=== PATIENT | female | born 1965 | race Caucasian/White ===

== ENCOUNTER 2016-11-13 10:44 | Emergency (ER) | payer OTHER ==
[2016-11-13 11:02] VITALS: BP 138/84
[2016-11-13] MEDS ORDERED: Ketorolac 30 MG/ML SDV IM ONE (11:53)
[2016-11-13] MEDS ORDERED: Ondansetron 4 MG Tab.DIS PO ONE (11:53)
--- NOTE | 2016-11-13 11:59 | EDM.PDOC ---
ED HPI GENERAL MEDICAL PROBLEM - General Chief Complaint: Headache Stated Complaint: HEADACHE Time Seen by Provider: 11/13/16 11:35 Source of Information: Reports: Patient History Limitations: Reports: No Limitations - History of Present Illness INITIAL COMMENTS - FREE TEXT/NARRATIVE: Patient is a 51-year-old female who presents to the ED complaining of the bitemporal headache that started approximately 3:00 last night. States pain is worse on the left in comparison to the right. She has had some mild dizziness present. Minimal nausea with no emesis. She took ibuprofen earlier this morning at approximately 5:0, symptoms have decreased. She states this past Sunday had a severe headache described as a migraine that resolved on its own. She was not able to keep any liquids or food down secondary discomfort. She layed in bed for 24 hours. She has history a migraines as a teenager. She has not had any migraines for quite some time up until recently. She describes the headache as a throbbing sensation mid forehead bitemporal. There is no vision changes present. No photophobia or hyperacusis noted. She has been dizzy described as being mild with standing. There is no difficulty swallowing, slurred speech, weakness to her upper or lower extremities or difficulty walking. She did contact her primary care provider last night and was instructed to come to the ED for imaging. Patient does have a family history of strokes. 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 Past medical history of asthma and seasonal allergies. She's takes ibuprofen only. Denies any smoking, recreational drug use. She utilizes alcohol on occasion basis. She flew in from [place] yesterday and is leaving today at approximate 1440. Headache Pain Score (Numeric/FACES): 6 - Related Data Allergies Allergy/AdvReac Type Severity Reaction Status Date / Time No Known Allergies Allergy Verified 11/13/16 10:54 Home Meds: Home Meds Albuterol/Ipratropium [Take Home: Albuterol/Ipratropium 4 GM Inhaler] 1 dose INH ASDIRECTED 11/13/16 [History] Past Medical History SPACE [employer]ER History: Reports: Ectopic Neurological History: Reports: Migraines - Past Surgical History Musculoskeletal Surgical History: Reports: Other (See Below) Other Musculoskeletal Surgeries/Procedures:: bilateral knee surgery, reconstruction of the right thumb Social & Family History - Tobacco Use Smoking Status *Q: Never Smoker Second Hand Smoke Exposure: No - Caffeine Use Caffeine Use: Reports: Coffee - Recreational Drug Use Recreational Drug Use: No ED ROS GENERAL - Review of Systems Review Of Systems: ROS reveals no pertinent complaints other than HPI. - Physical Exam Exam: See Below Exam Limited By: No Limitations General Appearance: Alert, WD/WN, No Apparent Distress Eye Exam: Bilateral Eye: EOMI, Normal Inspection, Nystagmus (None noted), PERRL Ears: Hearing Grossly Normal Nose: Normal Inspection Throat/Mouth: Normal Inspection, Normal Oropharynx, Normal Voice, No Airway Compromise Head Exam: Atraumatic, Normocephalic Neck: Normal Inspection, Supple, Non-Tender, Full Range of Motion. No: Lymphadenopathy (L), Lymphadenopathy (R) Respiratory/Chest: No Respiratory Distress, Lungs Clear, Normal Breath Sounds, Chest Non-Tender Cardiovascular: Normal Peripheral Pulses, Regular Rate, Rhythm, No Murmur GI/Abdominal: Normal Bowel Sounds, Soft, Non-Tender, No Organomegaly, No Distention Neuro Exam (Abbreviated): Alert, Oriented, CN II-XII Intact, Normal Cognition, Normal Gait, No Motor/Sensory Deficits, Other (Cerebellar function intact. No facial droop, slurred speech, difficulty swallowing, pronator drift, or weakness discrepancy's to the upper and lower extremity's.) Back Exam: Normal Inspection Extremities: Non-Tender, No Pedal Edema, Normal Capillary Refill Psychiatric: Normal Affect, Normal Mood Skin Exam: Warm, Dry, Intact, Normal Color, No Rash Course - Vital Signs Last Recorded V/S: Last Vital Signs Temp 98.0 F 11/13/16 10:56 Pulse 84 11/13/16 10:56 Resp 13 11/13/16 10:56 BP 138/84 11/13/16 10:56 Pulse Ox 100 11/13/16 10:56 - Orders/Labs/Meds Orders: Active Orders 24 hr Category Date Time Status EKG Documentation Completion [RC] STAT Care 11/13/16 11:52 Active Labs: Laboratory Tests 11/13/16 11/13/16 11/13/16 Range/Units 12:07 12:07 12:07 WBC 4.84 (3.98-10.04) K/mm3 RBC 4.82 (3.98-5.22) M/mm3 Hgb 15.4 (11.2-15.7) gm/L Hct 45.4 H (34.1-44.9) % MCV 94.2 (79.4-94.8) fl MCH 32.0 (25.6-32.2) pg MCHC 33.9 (32.2-35.5) g/dl RDW Std Deviation 42.5 (36.4-46.3) fL Plt Count 247 (182-369) K/mm3 MPV 9.8 (9.4-12.3) fl Neut % (Auto) 69.0 (34.0-71.1) % Lymph % (Auto) 18.4 L (19.3-51.7) % [place] % (Auto) 8.9 (4.7-12.5) % Eos % (Auto) 3.1 (0.7-5.8) Baso % (Auto) 0.6 (0.1-1.2) % Neut # (Auto) 3.34 (1.56-6.13) K/mm3 Lymph # (Auto) 0.89 L (1.18-3.74) K/mm3 [place] # (Auto) 0.43 H (0.24-0.36) K/mm3 Eos # (Auto) 0.15 (0.04-0.36) K/mm3 Baso # (Auto) 0.03 (0.01-0.08) K/mm3 PT 10.0 (8.0-13.0) SECONDS INR 0.92 APTT 24 (22-36) SECONDS Sodium 144 (136-145) mEq/L Potassium 4.1 (3.5-5.1) mEq/L Chloride 109 H (98-107) mEq/L Carbon Dioxide 29 (21-32) mEq/L Anion Gap 10.1 (5-15) BUN 13 (7-18) mg/dL Creatinine 0.8 (0.55-1.02) mg/dL Est Cr Clr Drug Dosing 73.63 mL/min Estimated GFR (MDRD) > 60 (>60) mL/min BUN/Creatinine Ratio 16.3 (14-18) Glucose 68 L (74-106) mg/dL Calcium 9.8 (8.5-10.1) mg/dL Total Bilirubin 0.5 (0.2-1.0) mg/dL AST 17 (15-37) U/L ALT 16 (14-59) U/L Alkaline Phosphatase 65 (46-116) U/L Troponin I < 0.017 (0.00-0.056) ng/mL C-Reactive Protein < 0.2 (<1.0) mg/dL Total Protein 7.4 (6.4-8.2) g/dl Albumin 3.7 (3.4-5.0) g/dl Globulin 3.7 gm/dL Albumin/Globulin Ratio 1.0 (1-2) TSH 3rd Generation 1.707 (0.358-3.74) uIU/mL Meds: Medications Discontinued Medications Generic Name Dose Route Start Last Admin Trade Name Freq PRN Reason Stop Dose Admin Ketorolac Tromethamine 30 mg 11/13/16 11:53 11/13/16 12:08 Toradol IM 11/13/16 11:54 30 mg ONETIME ONE Administration Ondansetron HCl 4 mg 11/13/16 11:53 11/13/16 12:05 Zofran Odt PO 11/13/16 11:54 4 mg ONETIME ONE Administration - Re-Assessments/Exams Free Text/Narrative Re-Assessment/Exam: Will obtain CT of the head without contrast. Initial labs and studies include CBC, chem 14, coag studies, troponin, TSH, and EKG. Ordered Toradol 30 mg IM and Zofran 4 mg by mouth. 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 She is restricted to take many medications to help abort headache. Labs reviewed: CBC, coag study, and chem 14 were essentially normal. Troponin, CRP, and TSH were within normal limits. CT the head impression: Equal to go but small meningioma overlying the left parietal convexity. As mentioned above, MRI would be needed to confirm or rule out if clinically needed. Sinus findings which are felt to be incidental. No acute intracranial abnormality is identified. Patient is supposed to be leaving [employer] at 2:40 PM today back to [place]. 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 Patient has been in contact with scheduling. It appears the patient will be remaining in [employer] for another day. She request to see if MRI could be obtained tomorrow morning. She has no headache at this point. 11/13/16 13:45 reassessment, headache is pain-free at this point. States with movement develops intermittent headache. Symptoms are mild. Earliest MRI appt is at 1:00 pm tomorrow. 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 This will not work. Patient to be discharged home. She will catch a flight home this coming morning at 0700hrs. She cannot take any sedative medications here in the E.D. Will discharge patient home with instructions as documented. Departure - Departure Time of Disposition: 14:25 Disposition: Home, Self-Care 01 Condition: Good Clinical Impression: Meningioma Headache Qualifiers: Headache type: unspecified Headache chronicity pattern: episodic headache Intractability: not intractable Qualified Code(s): R51 - Headache - Discharge Information Instructions: General Headache Without Cause Referrals: PCP,Not In Area [Primary Care Provider] - Forms: ED Department Discharge, ED Return to Work/School Form Additional Instructions: As discussed CT of the head did reveal a mengioma. MRI of the brain is required to further delineate extent. Take ibuprofen and tylenol in alternating fashion for headache. Push the fluids. Followup with PCP to have MRI ordered and discuss findings. Return to the E.D. if you develop any new or worsening symptoms. - My Orders Last 24 Hours: My Active Orders 11/13/16 11:52 EKG Documentation Completion [RC] STAT - Assessment/Plan Last 24 Hours: My Active Orders 11/13/16 11:52 EKG Documentation Completion [RC] STAT
--- NOTE | 2016-11-13 12:55 | CT ---
Head CT Technique: Multiple axial sections through the brain were obtained. Intravenous contrast was not utilized. Comparison: No previous intracranial imaging. Findings: Ventricles along with basal cisterns and sulci over the convexities are within normal limits for the patient's age. No abnormal parenchymal densities are seen. No evidence of intracranial hemorrhage. No midline shift or mass effect is seen. There is a slight area of increased density adjacent to the interhemispheric falx overlying the convexity containing minimal calcification and possibly due to small meningioma measuring 1.4 cm. MRI would be needed to confirm or rule out this finding. No additional abnormality is seen. Bone window settings were reviewed which shows no discrete calvarial abnormality. Minimal mucosal thickening is seen within portions of the sphenoid sinus and ethmoid sinuses. Impression: 1. Equivocal but small meningioma overlying the left parietal convexity. As mentioned above, MRI would be needed to confirm or rule out if clinically needed 2. Sinus findings which are felt to be incidental. 3. No acute intracranial abnormality is identified. Diagnostic code #3
== END 2016-11-13 15:14 | disposition home or self-care (01) ==
LOC: JD.ED 10:44
DX: D32.9 Benign neoplasm of meninges, unspecified (principal)
CPT/HCPCS: 36415; 70450; 80053; 84443; 84484; 85025; 85610; 85730; 86140; 93005; 96372; 99285; A9270; J1885; 99284